=== PATIENT | female | born 1990 | race Caucasian/White ===

== ENCOUNTER 2016-06-11 07:15 | Emergency (ER) | payer OTHER, MEDICAID ==
--- NOTE | ~2016-06-11 | ER ---
PATIENT'S NAME: YESSI MARQUEZ [facility] AGE: 25 Y [address] ROOM: [place] [address] LOCATION: [facility] ADMIT DATE: 06/11/2016 ER/Outpatient Report DISCHARGE DATE: 06/11/2016 FAMILY PHYSICIAN: PHYSICIAN, NO ATTENDING PHYSICIAN: Virginia Goodman Time of Arrival: 0715 hours. Time of Evaluation: 0733 hours. IDENTIFICATION: A 25-year-old female. CHIEF COMPLAINT: "I feel off." HISTORY OF PRESENT ILLNESS: The patient is currently G1, P1 at 26 weeks gestation, followed by Dr. Vallejo. She states that she just does not feel well she is lightheaded, vomiting, fell at work, and has sharp constant pain in her left lower quadrant. Baby has been active, but she said not today. No bleeding, no leaking fluid, no other problems or concerns. This is her first baby, she is a G1, P1. Last menstrual period was sometime in November. Her due date per ultrasound, she states is September 18, which would place her at 26 weeks gestation. She did not tell me this initially as we are getting ready to discharge her. 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 Mccallum one year ago, no yearly followup was recommended at that time, it was 8 mm per MRI in July of 2015. ALLERGIES: NO KNOWN DRUG ALLERGIES. CURRENT MEDICATIONS: One a day vitamin. MEDICAL PROBLEMS: Intrauterine , pituitary cyst. PREVIOUS SURGERIES: Cholecystectomy, L4-5 discectomy in July of 2015. SOCIAL HISTORY: The patient works at [employer]. She lives in [place]. She has a significant other. Tobacco use, denies. Alcohol use, denies. Drug use, denies. PATIENT'S NAME: YESSI MARQUEZ [facility] AGE: 25 Y [address] ROOM: [place] [address] LOCATION: [facility] ADMIT DATE: 06/11/2016 ER/Outpatient Report DISCHARGE DATE: 06/11/2016 FAMILY PHYSICIAN: PHYSICIAN, HARJINDER ATTENDING PHYSICIAN: Virginia Goodman REVIEW OF SYSTEMS: All systems reviewed and negative other than what is noted in the HPI. FAMILY HISTORY: No pertinent family history. PHYSICAL EXAMINATION: VITAL SIGNS: Height 5 feet 11 inches and weight 126.6 kg, blood pressure 131/75, pulse 102, respirations 18, temperature 98.8, and saturations 97%. After 1 L of fluids, her pulse came down to 80, blood pressure 122/68. GENERAL: A 25-year-old female, in no acute distress. HEENT: Head: Normocephalic, atraumatic. Ears: TMs translucent both ears. Eyes: Pupils equal and reactive to light and accommodation. Extraocular movements intact. Visual acuity grossly normal. Nose: Mucosa pink. No lesions, no sinus tenderness. Mouth: No lesions. Pharynx benign. NECK: Supple. No lymphadenopathy. LUNGS: Clear to auscultation. HEART: Regular rate and rhythm. No murmur, rub, or gallop. ABDOMEN: Intrauterine at 26 weeks' gestation. heart tones 150, movement is audible and palpable. Ultrasound revealed an unremarkable single live intrauterine gestation with estimated age of 26 weeks 5 days. Normal amniotic fluid and movement. Good heart tones. EXTREMITIES: No edema. NEURO: The patient is alert and oriented x4. Cranial nerves 2 through 12 grossly intact. Motor strength 5/5 throughout. Sensation is intact to light touch. 1 L of IV fluids, 4 mg of Zofran. DIAGNOSTIC DATA: Sodium 142, potassium 3.7, chloride 109, CO2 22, BUN 6, creatinine 0.5, blood sugar 119, albumin low at 2.8. She had a lot of hyperemesis at her 1st trimester. Hemoglobin 11.1, hematocrit 32.7, platelets 214, white count 9.9 with normal differential. UA is negative. The patient felt better after the ultrasound and fluids. She still felt a little "off." We discussed and offered an MRI at this point, they would like to wait, her mother is here as well. IMPRESSION AND PLAN: 1. Nausea and vomiting. 2. Near syncope. 3. Intrauterine at 26 weeks. 4. Pituitary cyst by history. PLAN: PATIENT'S NAME: YESSI MARQUEZ [facility] AGE: 25 Y [address] ROOM: [place] [address] LOCATION: ED ADMIT DATE: 06/11/2016 ER/Outpatient Report DISCHARGE DATE: 06/11/2016 FAMILY PHYSICIAN: PHYSICIAN, NO ATTENDING PHYSICIAN: Virginia Goodman 1. Clear liquids, small amounts, at frequent intervals. Zofran 4 mg 1 p.o. q.6 hours p.r.n. nausea, dispensed [address] with [address] Fernandez with an update today and see if she wants to move her appointment from June. No work today. Okay to return on Saturday, if she does not work tomorrow. If she is feeling better, she can work Saturday as tolerates. Follow up sooner if any problems or concerns. If she continues to feel off, I would do an MRI of her brain or has any visual changes. The patient understands and agrees, and all questions have been answered. MD AMPARO ZUNIGA/christian /[id number] d: 06/11/16 1407 t: 06/12/16 0923, OUTPATIENT REPORT
[~2016-06-11 07:15] MED LIST: ADVIL200 MG PO; FLEXERIL10 MG PO; MOBIC7.5 MG PO; TOPAMAX25 MG PO
[2016-06-11 07:57] LABS: BASOPHIL % 0.3 %; EOSINOPHIL # 0.1 K/uL (0.0-0.5); EOSINOPHIL % 1.3 %; HEMATOCRIT 32.7 % (33.0-46.0); HEMOGLOBIN 11.1 g/dL (11.0-15.0); IMMATURE GRANULOCYTE # 0.1 K/uL (0.0-0.3); IMMATURE GRANULOCYTE % 0.5 %; LYMPHOCYTE # 1.6 K/uL (0.8-4.0); LYMPHOCYTE % 16.4 %; MCH 28.5 pg (27.0-34.0); MCHC 33.9 gm/dL (32.0-36.5); MCV 83.8 fl (83.0-98.0); MONOCYTE # 0.6 K/uL (0.0-1.0); MONOCYTE % 6.1 %; MPV 10.4 fl (9.4-12.4); NEUTROPHIL # (ANC) 7.4 K/uL (1.8-7.8); NEUTROPHIL % 75.4 %; NRBC % 0 /100WBC (0-0.00); PLATELET COUNT 214 K/uL (150-450); RDW-CV 13.2 % (11.9-14.6); WBC 9.9 K/uL (4.0-11.0)
[2016-06-11 08:13] LABS: ALBUMIN 2.8 gm/dL (3.5-5.0); ALK PHOS 81 IU/L (33-138); ALT 13 IU/L (12-78); ANION GAP 14.7 (10.0-19.0); AST 10 IU/L (10-40); BLOOD UREA NITROGEN 6 mg/dL (6-24); CALCIUM 8.3 mg/dL (8.5-10.5); CHLORIDE 109 mMol/L (96-110); CO2 22 mMol/L (22-32); CREATININE 0.5 mg/dL (0.5-1.1); ESTIMATED GFR (MDRD EQUATION) > 60; POTASSIUM 3.7 mMol/L (3.7-5.1); SODIUM 142 mMol/L (135-145); TOTAL BILIRUBIN 0.3 mg/dL (0.0-1.5); TOTAL PROTEIN 6.6 g/dL (6.0-8.4)
[2016-06-11 09:15] LABS: BILIRUBIN URINE NEGATIVE (NEGATIVE); BLOOD URINE NEGATIVE /UL (NEGATIVE); GLUCOSE URINE NEGATIVE (NEGATIVE); KETONE URINE NEGATIVE (NEGATIVE); LEUKOCYTES URINE NEGATIVE /UL (NEGATIVE); NITRITE URINE NEGATIVE (NEGATIVE); PROTEIN URINE NEGATIVE (NEGATIVE); UROBILINOGEN URINE NORMAL (NORMAL)
[2016-06-11 09:20] LABS: COLOR URINE STRAW (YELLOW); TURBIDITY URINE CLEAR (CLEAR)
== END 2016-06-11 09:31 | disposition disaster alternative care site (69) ==
LOC: GMED 07:15
PROVIDERS: Family Medicine
DX: O21.2 Late vomiting of pregnancy (principal); O99.89 Other specified diseases and conditions complicating pregnancy, childbirth and the puerperium; R55 Syncope and collapse; Z3A.26 26 weeks gestation of pregnancy; Z90.49 Acquired absence of other specified parts of digestive tract
CPT/HCPCS: J2405; J7030

== ENCOUNTER 2016-07-17 23:34 | Observation (INO) | payer OTHER, MEDICAID ==
[~2016-07-17] VITALS: Ht 180.3 cm; Wt 125.0 kg
--- NOTE | ~2016-07-17 | HP ---
PATIENT'S NAME: YESSI MARQUEZ [facility] AGE: 25 Y [address] ROOM: [place] [address] LOCATION: [facility] ADMIT DATE: 07/17/2016 History & Physical DISCHARGE DATE: FAMILY PHYSICIAN: GRANT CRUZ MD ATTENDING PHYSICIAN: GRANT CRUZ DATE OF SERVICE: CHIEF COMPLAINT: Uterine cramping and leg cramping. HISTORY OF PRESENT ILLNESS: The patient is a 25-year-old, G1 with intrauterine at 31 weeks 1-day who presented to the ER complaining of uterine cramping. She was monitored and checked and found to be closed. The patient also reports lower extremity swelling and cramping. She states that she does drink plenty of water and does not understand why she appears to be dehydrated. She denies vaginal bleeding. She reports good movement. MEDICAL HISTORY: Obesity. PAST SURGICAL HISTORY: None. OB HISTORY: This is her first . It is complicated by gestational diabetes. Diet- controlled. SOCIAL HISTORY: No tobacco, alcohol, or drug use. MEDICATIONS: Zantac and vitamin. ALLERGIES: NONE. REVIEW OF SYSTEMS: Negative except as noted in HPI. FAMILY HISTORY: Noncontributory. PHYSICAL EXAMINATION: PATIENT'S NAME: YESSI MARQUEZ [facility] AGE: 25 Y [address] ROOM: [place] [address] LOCATION: [facility] ADMIT DATE: 07/17/2016 History & Physical DISCHARGE DATE: FAMILY PHYSICIAN: GRANT CRUZ MD ATTENDING PHYSICIAN: GRANT CRUZ VITAL SIGNS: Blood pressure 118/63, heart rate 80, respiration 18, temperature 98.3. GENERAL: She is alert and oriented, no acute distress. ABDOMEN: Soft and nontender. Gravid. EXTREMITIES: Trace edema in lower extremities to the level of the calves. VAGINAL: Performed by nurse revealed the patient to be thick, closed, and high, heart tones baseline 130, moderate variability, positive accelerations, no decelerations. Biehle shows no contractions. LABORATORY WORK: Urinalysis was performed that showed specific gravity of 1.015, 100 leukocytes, 15 of protein, 50 of glucose, and 15 ketones. She did have 10 to 20 white blood cells and 10 to 20 epithelial cells with many bacteria. ASSESSMENT: The patient is a 25-year-old, G1 with intrauterine at 31 weeks and 1 day, who presented with uterine cramping. PLAN: The patient is not dilated. Okay to send home. We will get another clean- catch and urine culture before the patient leaves. Recommend increasing fluid intake and Tylenol for her leg cramping. MD MINNA SHANKAR/christian /[id number] D: T: 923 HISTORY & PHYSICAL
[2016-07-18] MEDS ORDERED: ACETAMINOPHEN325 MG PO (00:47)
[2016-07-18] MEDS ORDERED: ZANTAC (NON-FO150 MG PO (00:47)
[2016-07-18 01:32] LABS: BILIRUBIN URINE NEGATIVE (NEGATIVE); BLOOD URINE NEGATIVE /UL (NEGATIVE); COLOR URINE YELLOW (YELLOW); GLUCOSE URINE 50 mg/dL (NEGATIVE); KETONE URINE 15 mg/dL (NEGATIVE); LEUKOCYTES URINE 100 /UL (NEGATIVE); NITRITE URINE NEGATIVE (NEGATIVE); PH URINE 6.5 (4.0-8.0); PROTEIN URINE 15 mg/dL (NEGATIVE); SPEC GRAVITY URINE 1.015 (1.003-1.035); TURBIDITY URINE 1+ (CLEAR); UROBILINOGEN URINE NORMAL (NORMAL)
[2016-07-18 01:40] LABS: BACTERIA URINE MANY (NEGATIVE); MUCUS URINE 1+ (NEGATIVE); RBC URINE RARE #/HPF (NEGATIVE)
== END 2016-07-18 08:25 | disposition disaster alternative care site (69) ==
LOC: GOBM → GOBS 23:34 → GOBM 09-18 15:30 → EDSTATUS 09-18 23:32
PROVIDERS: ADMIT Obstetrics & Gynecology
DX: O99.89 Other specified diseases and conditions complicating pregnancy, childbirth and the puerperium (principal); N94.89 Other specified conditions associated with female genital organs and menstrual cycle; O99.213 Obesity complicating pregnancy, third trimester; Z68.38 Body mass index [BMI] 38.0-38.9, adult; Z3A.31 31 weeks gestation of pregnancy
CPT/HCPCS: G0463

== ENCOUNTER 2016-08-23 17:00 | Outpatient (CLI) | payer OTHER, MEDICAID ==
[~2016-08-23] VITALS: Ht 180.3 cm
[~2016-08-23 17:00] MED LIST changes: +ACETAMINOPHEN325 MG PO; +ZANTAC (NON-FO150 MG PO
[2016-08-23 20:19] LABS: BASOPHIL % 0.2 %; EOSINOPHIL # 0.1 K/uL (0.0-0.5); EOSINOPHIL % 0.8 %; HEMOGLOBIN 10.8 g/dL (11.0-15.0); IMMATURE GRANULOCYTE # 0.1 K/uL (0.0-0.3); IMMATURE GRANULOCYTE % 0.5 %; LYMPHOCYTE % 18.2 %; MCH 26.8 pg (27.0-34.0); MCHC 33.8 gm/dL (32.0-36.5); MONOCYTE # 0.6 K/uL (0.0-1.0); MONOCYTE % 5.7 %; MPV 10.7 fl (9.4-12.4); NEUTROPHIL # (ANC) 8.2 K/uL (1.8-7.8); NEUTROPHIL % 74.6 %; NRBC % 0 /100WBC (0-0.00); PLATELET COUNT 212 K/uL (150-450); RBC 4.03 M/uL (3.50-5.00); RDW-CV 12.6 % (11.9-14.6)
[2016-08-23 20:20] LABS: MCV 79.4 fl (83.0-98.0)
== END 2016-08-23 21:20 | disposition disaster alternative care site (69) ==
LOC: GOBS 17:00 → GOBM 17:00
PROVIDERS: Obstetrics & Gynecology
DX: O47.03 False labor before 37 completed weeks of gestation, third trimester (principal); Z3A.36 36 weeks gestation of pregnancy
CPT/HCPCS: G0463; J2001; J7030; J7120

== ENCOUNTER 2016-09-07 10:57 | Inpatient (IN) | payer OTHER, MEDICAID ==
[~2016-09-07] VITALS: Ht 180.3 cm; Wt 159.0 kg
--- NOTE | ~2016-09-07 | OR ---
PATIENT'S NAME: YESSI MARQUEZ [facility] AGE: 25 Y [address] ROOM: [place] [address] LOCATION: [facility] ADMIT DATE: 09/07/2016 OR/Procedure Report DISCHARGE DATE: FAMILY PHYSICIAN: PHYSICIAN, NO ATTENDING PHYSICIAN: DELMI VALLEJO SURGEON: Delmi Vallejo MD SHIRRING MACHINE OPERATOR: Ozzy Fernandez MD. Dr. Fernandez's assistance was required for adequate visualization of the tissues as well as safe delivery of the fetus. DATE OF PROCEDURE: 09/08/2016 PROCEDURE PERFORMED: Primary low transverse section. PREOPERATIVE DIAGNOSES: 1. Intrauterine at 38 weeks and 4 days. 2. Preeclampsia with severe features. 3. Gestational diabetes, class A1. 4. Obesity. 5. Arrest of dilation. POSTOPERATIVE DIAGNOSES: 1. Intrauterine at 38 weeks and 4 days. 2. Preeclampsia with severe features. 3. Gestational diabetes, class A1. 4. Obesity. 5. Arrest of dilation. SPECIMENS: Cord blood and placenta. FINDINGS: Viable female , weight of 10 pounds 6 ounces. Apgars of 8 and 9. Intact placenta with 3-vessel cord. Normal-appearing uterus and ovaries. The patient had a right paratubal cyst approximately 3 cm in diameter that was not operated on. Antibiotics were 3 g Ancef and azithromycin 500 mg. ANESTHESIA: Anesthesia was with epidural. ESTIMATED BLOOD LOSS: 750 mL. COMPLICATIONS: None. DISPOSITION: The patient is stable and sent back to her room for normal recovery. Infant was in NICU, but was to return to the patient's room. PATIENT'S NAME: YESSI MARQUEZ [facility] AGE: 25 Y [address] ROOM: [place] [id number] LOCATION: [facility] ADMIT DATE: 09/07/2016 OR/Procedure Report DISCHARGE DATE: FAMILY PHYSICIAN: PHYSICIAN, NO ATTENDING PHYSICIAN: DELMI VALLEJO INDICATIONS FOR THE PROCEDURE: The patient is a 25-year-old G1, P0, who had a complicated by gestational diabetes class A1 as well as obesity. The patient brought blood sugars to clinic irregularly but when she did present her blood sugars appeared to be in good control. On September 07, 2016, the patient presented to clinic with severe range blood pressures and a mild headache. Labs were obtained. CBC and CMP were within normal limits, but she had elevated hwwobrn-ph-jhdbdzhxca ratio greater than one. She was recommended to undergo induction of labor. She was 1 cm dilated at that time. One dose of 25 mcg of Cytotec was placed. On repeat check, cervix was still 1, but was softened and a Valladares bulb was placed. When Valladares bulb was removed, the patient was noted to be 4 cm dilated. AROM was performed on the evening of September 07 after Valladares bulb had fallen out and clear fluid was noted. The patient failed to make any further progress overnight on Pitocin. Repeat exam in the morning showed a possible fore bag present, which was ruptured and again clear fluid was noted. The patient did not make any further progress past 4 cm over the next 3 hours while on 21 milliunits of Pitocin and a decision was made to proceed with primary low transverse section due to arrest of dilation. She is aware of the risks of procedure to include, but not limited to, risk of bleeding, risk of infection, risk of injury to bowel and bladder, risk of thromboembolism, and risk associated with anesthesia. She was aware of the risks and desired to proceed. The patient was on magnesium for seizure prophylaxis due to her severe preeclampsia. DESCRIPTION OF PROCEDURE: The patient was taken back to the operating room. Epidural anesthesia had previously been established and was dosed up appropriately. A Valladares catheter was also in place. She was placed in dorsal supine position with a leftward tilt of the hips. She was then prepped and draped in the usual sterile fashion. Anesthesia was tested and found to be adequate. Time-out was performed to confirm correct patient and correct procedure. Incision was made in the skin and carried down to the underlying fascia. Fascia was nicked on both sides in the midline. Fascial incision was extended using Remy scissors. Superior and inferior fascia was dissected from the underlying rectus muscles using blunt and sharp dissection with Remy scissors. The peritoneum was then entered bluntly and spread. Bladder blade and Rich retractor were placed for visualization. A low-transverse hysterotomy incision was made and spread in a cephalocaudad direction. Fluid still appeared clear. Surgeon's hand was placed into the uterus and bladder blade was removed. head was elevated to the level of the incision and delivered with the assistance of fundal pressure. With continued fundal pressure, the shoulders and the remainder of body delivered. Infant was noted to have a vigorous cry. Cord was clamped and cut. was handed off to the awaiting NICU nurses. Cord blood was obtained per protocol. IV Pitocin was started per protocol. Uterus was exteriorized and cleared of all clots and debris. Bladder blade was replaced. Due to poor uterine tone, one dose of Hemabate was given. The uterus was then closed in a PATIENT'S NAME: YESSI MARQUEZ [facility] AGE: 25 Y [address] ROOM: [address] [address] LOCATION: [facility] ADMIT DATE: 09/07/2016 OR/Procedure Report DISCHARGE DATE: FAMILY PHYSICIAN: PHYSICIAN, NO ATTENDING PHYSICIAN: DELMI VALLEJO single layer fashion using a running locked suture of 0 Vicryl. An area of bleeding was appreciated on the left with a small hematoma, which was made hemostatic with a kdrmhn-te-lwhuj suture of 0 Vicryl. The hematoma did not appear to expand. The uterus was replaced back into the abdomen. Bladder blade and Rich retractor were again placed and incision was noted to have some slight bleeding in the midline, which was made hemostatic with another figure- of-eight suture of 0 Vicryl. No further bleeding was noted. Bilateral pericolic gutters were cleared of all clots. The fascia was then closed using a running nonlocked suture of 0 Vicryl. Subcutaneous tissue was irrigated and any areas of bleeding were cauterized with Bovie cautery. The subcutaneous tissue was reapproximated using a 2-0 Vicryl on a large needle. The skin was then reapproximated using a 4-0 Vicryl on a Rodger needle. Mastisol and Steri- Strips were applied to the incision. All needle, sponge, and instrument counts were noted to be correct x2, and the patient was sent back to her room in stable condition. DELMI VALLEJO MD GT/kathyl /[id number] d: 09/08/161916 t: 09/12/16 2154, OPERATIVE SUMMARY
--- NOTE | ~2016-09-07 | DS ---
PATIENT'S NAME: YESSI MARQUEZ [facility] AGE: 25 Y [address] ROOM: [place] [address] LOCATION: [facility] ADMIT DATE: 09/07/2016 Discharge Summary DISCHARGE DATE: 09/11/2016 FAMILY PHYSICIAN: HARJINDER DOAN ATTENDING PHYSICIAN: Grant Vallejo ADMISSION DIAGNOSES: 1. Intrauterine at 38 weeks and 3 days. 2. Preeclampsia severe features. 3. Gestational diabetes class A1. 4. Obesity. DISCHARGE DIAGNOSES: 1. Intrauterine at 38 weeks and 3 days. 2. Preeclampsia severe features. 3. Gestational diabetes class A1. 4. Obesity. 5. Arrest of dilation. PROCEDURE PERFORMED DURING THIS HOSPITALIZATION: Primary low transverse section. CONSULTATIONS: None. COMPLICATIONS: None. HISTORY AND HOSPITAL COURSE: The patient is a G1, P0 who was sent over from the office at 38 weeks' and 3 days' due to severe ranged blood pressures in the office and a urine lgtdehe-mg-itjcsinbyy ratio that was greater than 1. has been complicated by gestational diabetes class A1 as well as obesity. The patient was started on magnesium for seizure prophylaxis. Valladares bulb was placed due to a nonfavorable cervix and she progressed to 4 cm. AROM was performed. The patient failed to progress past 4 cm and decision was made to proceed with section. Procedure was without complication and she delivered a viable female infant weighing 10 pounds and 6 ounces with score of 8 and 9. Estimated blood loss was 750 mL. She was kept on magnesium for seizure prophylaxis for 24 hours following the procedure. The patient did have severe ranged blood pressures and was started on 60 Procardia XL. Pressures were fairly well-controlled on this medications and she was felt to be stable for discharge to home on postop day #3 as she was meeting all postop goals. DISCHARGE PRECAUTIONS: The patient was instructed to call if fever greater than 100.4, redness or drainage from her incision, uncontrolled pain, heavy vaginal bleeding greater than 2 pads per hour. She was instructed not to lift PATIENT'S NAME: YESSI MARQUEZ [facility] AGE: 25 Y [address] ROOM: [place] [address] LOCATION: [facility] ADMIT DATE: 09/07/2016 Discharge Summary DISCHARGE DATE: 09/11/2016 FAMILY PHYSICIAN: PHYSICIAN, NO ATTENDING PHYSICIAN: Grant Vallejo anything greater than 15 pounds for 4 weeks and to be on pelvic rest x6 weeks. For discharge medications, please see medication list, and for followup, she is to see me in the office in 1 week for blood pressure check and a 2 week for an incision check. GRANT VALLEJO MD GT/modl /[id number] d: 09/13/16 0423 t: 09/19/16 1140, DISCHARGE SUMMARY
--- NOTE | 2016-09-08 05:21 | NUR ---
VSS. Pain in back, hips, and head. Tylenol given approx 0240 for headache. IV patent to right wrist. Mag running at 50mL/hr. Pitocin at 51mL/hr. LR at 24mL/hr. VE 5/-2. Ambulates to BR and voids independently. Wireless monitor traces well. UC pattern is irregular
[2016-09-08 09:25] LABS: BASOPHIL % 0.4 %; EOSINOPHIL # 0.1 K/uL (0.0-0.5); EOSINOPHIL % 0.6 %; HEMATOCRIT 34.2 % (33.0-46.0); HEMOGLOBIN 10.7 g/dL (11.0-15.0); IMMATURE GRANULOCYTE # 0.1 K/uL (0.0-0.3); IMMATURE GRANULOCYTE % 0.6 %; LYMPHOCYTE # 1.4 K/uL (0.8-4.0); LYMPHOCYTE % 12.8 %; MCH 26.4 pg (27.0-34.0); MCHC 31.3 gm/dL (32.0-36.5); MONOCYTE # 0.6 K/uL (0.0-1.0); MONOCYTE % 5.5 %; NEUTROPHIL # (ANC) 8.5 K/uL (1.8-7.8); NEUTROPHIL % 80.1 %; NRBC % 0 /100WBC (0-0.00); RBC 4.06 M/uL (3.50-5.00); RDW-CV 13.5 % (11.9-14.6); WBC 10.6 K/uL (4.0-11.0)
[2016-09-08 09:44] LABS: MCV 84.2 fl (83.0-98.0); PLATELET COUNT 154 K/uL (150-450)
--- NOTE | 2016-09-08 16:53 | NUR ---
Last VS: T:98.2 P:77 R: 18 BP: 150/82 Pain rating: . Last pain med: Percocet/TORADOL Medicated at: 1338/1245 Effective: Yes R Lung sounds:CL , L Lung sounds: CL Fundus:, FIRM EVEN, Lochia: SM, Breasts: SOFT, Nipples: NO PROBLEM Incision: , Incision appearance: Incision closure: MICROFOAM DSG D/I Bowel sounds: HYPO Passing flatus: NO Voiding well: GARCIA CATH TO REMAIN IN UNTIL 09/09 Significant event: . MGSO4 REMAINS ON AT 2GM/HR UNTIL 09/09 1230. LILIANA ROA. PATERNITY AND BC PAPERS AT BEDSIDE.
[2016-09-09 04:55] LABS: BASOPHIL % 0.2 %; EOSINOPHIL # 0.1 K/uL (0.0-0.5); EOSINOPHIL % 0.8 %; HEMOGLOBIN 8.9 g/dL (11.0-15.0); IMMATURE GRANULOCYTE # 0.1 K/uL (0.0-0.3); IMMATURE GRANULOCYTE % 0.8 %; LYMPHOCYTE # 1.8 K/uL (0.8-4.0); LYMPHOCYTE % 14.6 %; MCH 27.1 pg (27.0-34.0); MONOCYTE # 0.9 K/uL (0.0-1.0); MONOCYTE % 6.9 %; MPV 10.5 fl (9.4-12.4); NEUTROPHIL # (ANC) 9.4 K/uL (1.8-7.8); NEUTROPHIL % 76.7 %; NRBC % 0 /100WBC (0-0.00); RBC 3.29 M/uL (3.50-5.00); RDW-CV 13.2 % (11.9-14.6); WBC 12.3 K/uL (4.0-11.0)
[2016-09-09 04:56] LABS: HEMATOCRIT 26.1 % (33.0-46.0); MCHC 34.1 gm/dL (32.0-36.5); MCV 79.3 fl (83.0-98.0); PLATELET COUNT 211 K/uL (150-450)
[2016-09-09 05:13] LABS: ALBUMIN 1.9 gm/dL (3.5-5.0); ALK PHOS 132 IU/L (33-138); ALT < 10 IU/L (12-78); AST 14 IU/L (10-40); BLOOD UREA NITROGEN 3 mg/dL (6-24); CALCIUM 7.5 mg/dL (8.5-10.5); CHLORIDE 108 mMol/L (96-110); CO2 24 mMol/L (22-32); CREATININE 0.5 mg/dL (0.5-1.1); ESTIMATED GFR (MDRD EQUATION) > 60; SODIUM 141 mMol/L (135-145); TOTAL BILIRUBIN 0.3 mg/dL (0.0-1.5); TOTAL PROTEIN 5.4 g/dL (6.0-8.4)
--- NOTE | 2016-09-09 18:00 | NUR ---
09/09/16 1800: bp 120'S/140'S-60/80'S. UP AMD IN HALLWAY SEVERAL TIMES. 3+ BILATERAL LOWER LEGS. ON PROCARDIA DAILY. NEEDS ASSIST W/BF. SILVER SULFADIAZINE TO WIRELESS MONITOR ABD. AREA'S. LOW ABD. INC. INTACT W/ SUTURE AND STERI. PERC. @ 4942.
--- NOTE | 2016-09-10 16:58 | NUR ---
Significant Event: Follow up: VSS, HBG 8.9, from 10.7, Sl dc'd. Remains on Procardia po. C/o gas, gas-X po ordered & given, didnt really help, also knee high KIM hose ordered & on, for c/o swelling. Incision int, steristrips off, looks great, likes ice to inc prn. Medicated with motrin @ 1430, percocet 1) @ 1650. Plans home tomorrow.
--- NOTE | 2016-09-10 17:02 | NUR ---
Met with patient at her bedside today with petra Moore. Introduced myself and explained my role with the CM department. Sadaf states she has all the necessary baby items for Teresa. I provided her with a list of community resources and a voucher to the [facility]. I also instructed her to contact Medicaid and inform them of baby's . We discussed signs and symptoms of post depression. She states she has a history of anxiety and depression and has already addressed this with Dr. Vallejo. I provided her with a handout that reviews the signs and symptoms and encouraged her to call her doctor if she is experiencing any of them for more than 24-36 hours. She denies any other needs at this time. Will continue to follow and offer supports as needed.
--- NOTE | 2016-09-11 04:55 | NUR ---
VSS. FUNDUS FIRM,EVEN, 1 DOWN. SMALL FLOW. PATIENT DENIES PASSING CLOTS. INCISION CLEAN AND DRY, NO STERRI STRIPS. NEEDS HELP WITH BREAST FEEDING. 2 PERCOCET LAST AT 0427. PLANNING ON GOING HOME TODAY.
[2016-09-11] MEDS ORDERED: SURFAK240 MG PO (10:33)
[2016-09-11] MEDS ORDERED: PEPCID20 MG PO (10:34)
[2016-09-11] MEDS ORDERED: PRENATAL 1+1)(P1 TAB PO (10:36)
[2016-09-11] MEDS ORDERED: MOTRIN800 MG PO (10:36)
[2016-09-11] MEDS ORDERED: PROCARDIA XL30 MG PO (10:36)
[2016-09-11] MEDS ORDERED: PERCOCET 5-3251 EACH PO (10:37)
[2016-09-11] MEDS ORDERED: SSD25 GM TOP (10:38)
== END 2016-09-11 16:50 | disposition disaster alternative care site (69) | DRG 766 ==
LOC: GOBM 10:57 → GOBS 10:57 → GOBM 10:59 → GOBS 09-11 16:50
PROVIDERS: ADMIT Obstetrics & Gynecology
DX: O14.13 Severe pre-eclampsia, third trimester (principal); E66.9 Obesity, unspecified; O24.429 Gestational diabetes mellitus in childbirth, unspecified control; O99.214 Obesity complicating childbirth; Z3A.38 38 weeks gestation of pregnancy; Z37.0 Single live birth; N83.8 Other noninflammatory disorders of ovary, fallopian tube and broad ligament; O26.893 Other specified pregnancy related conditions, third trimester; Z67.11 Type A blood, Rh negative; O62.1 Secondary uterine inertia
CPT/HCPCS: J0456; J0610; J0690; J1885; J2001; J2270; J2590; J2791; J3010; J3475; J7120

== ENCOUNTER 2016-10-06 21:07 | Emergency (ER) | payer OTHER, MEDICAID ==
--- NOTE | ~2016-10-06 | ER ---
PATIENT'S NAME: YESSI MARQUEZ [facility] AGE: 26 Y [address] ROOM: [place] [id number] LOCATION: ED ADMIT DATE: 10/06/2016 ER/Outpatient Report DISCHARGE DATE: 10/06/2016 FAMILY PHYSICIAN: PHYSICIAN, NO ATTENDING PHYSICIAN: Brent Armstrong Time of Arrival: 2107 hours. Time of Evaluation: 2115 hours. CHIEF COMPLAINT: Migraine headache. HISTORY OF PRESENT ILLNESS: This is a 26-year-old female, who presents to the ER with a migraine headache that started yesterday. She states she does have a history of migraines. It is similar to her previous headaches and she states that she just cannot get rid of it. She states she has had a significant migraine like this for the past 2 years. She states it does make her feel nauseated. She has photophobia. She has had no recent illness. No fever or chills. She just delivered a baby in August and has been doing fine post delivery from that. ALLERGIES: NO KNOWN ALLERGIES. MEDICATIONS: Please see medication list nurse's notes. PAST MEDICAL HISTORY: She has some preeclampsia. PAST SURGICAL HISTORY: . SOCIAL HISTORY: Denies smoking, drug, or alcohol use. REVIEW OF SYSTEMS: All systems reviewed and were negative with the exception of those discussed in the HPI. PHYSICAL EXAMINATION: VITAL SIGNS: Height 5 feet 11 inches stated, weight 113.7 kg taken, blood pressure is 147/86, pulse 90, respirations 16, temperature 97.9 degrees tympanically, and saturations 97% on room air. [place] Coma Score is 15. GENERAL: Alert, calm, well-developed, 26-year-old, in mild distress. PATIENT'S NAME: YESSI MARQUEZ [facility] AGE: 26 Y [address] ROOM: [place], [place] [address] LOCATION: [facility] ADMIT DATE: 10/06/2016 ER/Outpatient Report DISCHARGE DATE: 10/06/2016 FAMILY PHYSICIAN: PHYSICIAN, NO ATTENDING PHYSICIAN: Brent Armstrong HEENT: Head: Normocephalic. Eyes: Pupils are equal and reactive to light. Ears: TMs display good light reflexes bilaterally. Auditory canals clear. Nose: Turbinates pink with no drainage. Throat: No exudates or erythema. She does display moist mucous membranes. No nuchal rigidity. LUNGS: Clear to auscultation bilaterally. HEART: Regular rate and rhythm. EXTREMITIES: No clubbing or cyanosis. She does have full range of motion of all limbs. IMPRESSION: Migraine. ASSESSMENT AND PLAN: We did start an IV here in the emergency room. We did give her Compazine 10 mg, Benadryl 50 mg, and a liter of IV fluids. She states she is feeling much better. We will dismiss her to home. She is to continue to push fluids, monitor her symptoms closely, and follow up with her primary care physician if needed. The patient understands and agrees with care. WINDY DEL CASTILLO PA-C FOR MD PHYLICIA SINCLAIR/christian /[id number] d: 10/07/16 0303 t: 10/09/16 1253, OUTPATIENT REPORT
[~2016-10-06 21:07] MED LIST changes: +MOTRIN800 MG PO; +PEPCID20 MG PO; +PERCOCET 5-3251 EACH PO; +PRENATAL 1+1)(P1 TAB PO; +PROCARDIA XL30 MG PO; +SSD25 GM TOP; +SURFAK240 MG PO
== END 2016-10-06 22:15 | disposition disaster alternative care site (69) ==
LOC: GMED 21:07
DX: O99.355 Diseases of the nervous system complicating the puerperium (principal); G43.909 Migraine, unspecified, not intractable, without status migrainosus; O14.95 Unspecified pre-eclampsia, complicating the puerperium; Z98.890 Other specified postprocedural states; Z79.899 Other long term (current) drug therapy
CPT/HCPCS: J0780; J1200; J7030